=== PATIENT | male | born 1940 | race Caucasian/White ===

== ENCOUNTER 2021-09-06 21:59 | Emergency (ER) | payer MEDICARE ==
[~2021-09-06] VITALS: Ht 175.3 cm; Wt 77.2 kg
[2021-09-06 22:20] VITALS: BP 145/88
== END 2021-09-06 23:05 | disposition home or self-care (01) ==
LOC: EMS 22:00
DX: T16.1XXA Foreign body in right ear, initial encounter (principal); E11.9 Type 2 diabetes mellitus without complications; X58.XXXA Exposure to other specified factors, initial encounter; Y93.89 Activity, other specified; Y92.89 Other specified places as the place of occurrence of the external cause; Y99.8 Other external cause status
CPT/HCPCS: 24640; 99281; 99282; 99283; 99284